=== PATIENT | male | born 1940 | race Caucasian/White ===

== ENCOUNTER 2023-05-14 13:14 | Day surgery (SDC) | payer MEDICARE, OTHER ==
[2023-05-07 10:00] LABS: BASOPHILS % (AUTO) 0.4 % (0-1); EOSINOPHILS # (AUTO) 0.3 X10'3 (0-0.9); EOSINOPHILS % (AUTO) 2.6 % (0-6); HEMATOCRIT 47.4 % (42.0-52.0); HEMOGLOBIN 15.3 g/dl (14.0-17.9); LYMPHOCYTES # (AUTO) 1.4 X10'3 (1.1-4.8); LYMPHOCYTES % (AUTO) 13.1 % (21-51); MEAN CORPUSCULAR HEMOGLOBIN 27.8 PG (27.0-31.0); MEAN CORPUSCULAR HGB CONC 32.3 g/dL (33.0-36.5); MEAN CORPUSCULAR VOLUME 86.2 FL (78-98); MONOCYTES # (AUTO) 0.5 X10'3 (0-0.9); MONOCYTES % (AUTO) 4.9 % (2-12); NEUTROPHILS # (AUTO) 8.5 X10'3 (1.8-7.7); PLATELET COUNT 249 X10'3 (140-440); RED CELL DISTRIBUTION WIDTH 15.3 % (11.5-14.5); WHITE BLOOD COUNT 10.7 X10'3 (4.5-11.0)
[2023-05-07 10:10] LABS: APTT 27 SECONDS (22-32)
[2023-05-07 10:25] LABS: ALBUMIN 3.7 G/DL (3.4-5.0); ANION GAP 6 (8-16); BLOOD UREA NITROGEN 46 MG/DL (7-18); CALCIUM 10.4 MG/DL (8.5-10.1); CHLORIDE 102 MMOL/L (99-107); CHOLESTEROL 137 MG/DL (0-200); CREATININE 2.55 MG/DL (0.60-1.10); GLUCOSE 127 MG/DL (70-104); HDL CHOLESTEROL 46 MG/DL (35-60); LDL CHOLESTEROL 76 MG/DL (50-100); SODIUM 137 MMOL/L (135-145); TOTAL CARBON DIOXIDE 29.5 MMOL/L (24-32); TRIGLYCERIDES 81 MG/DL (20-135); eGFR 24 ML/MIN
[2023-05-14] VITALS (7 sets, daily range): BP systolic 113–141; BP diastolic 45–85
[~2023-05-14] VITALS: Ht 170.2 cm; Wt 96.8 kg
[2023-05-14] MEDS ORDERED: LORazepam 0.5 MG tablet PO PRN (13:35)
[2023-05-14] MEDS ORDERED: diphenhydrAMINE 25mg capsule PO PRN (13:35)
[2023-05-14] MEDS ORDERED: normal saline 1,000 ML IV SCH (13:35)
[2023-05-14] MEDS ORDERED: ASPI81TA52 PO (13:55)
[2023-05-14] MEDS ORDERED: ERGO500041 PO (13:55)
[2023-05-14] MEDS ORDERED: CHLO25TA10 (13:55)
[2023-05-14] MEDS ORDERED: INSU300I (13:55)
[2023-05-14] MEDS ORDERED: RAMI10CA69 (13:55)
[2023-05-14] MEDS ORDERED: AMLO10TA13 (13:55)
[2023-05-14] MEDS ORDERED: FLO0.4C (13:55)
[2023-05-14] MEDS ORDERED: CLOP75TA34 PO (13:55)
[2023-05-14] MEDS ORDERED: PRAV40TA3 (13:55)
[2023-05-14] MEDS ORDERED: POTA-280 (13:55)
[2023-05-14] MEDS ORDERED: LABE100T8 (13:55)
[2023-05-14] MEDS ORDERED: SODIUM BICARB 150mEq/D5W 1L 999 ML IV SCH ×2 (14:30)
[2023-05-14 14:55] LABS: ALBUMIN 3.4 G/DL (3.4-5.0); ANION GAP 9 (8-16); BLOOD UREA NITROGEN 52 MG/DL (7-18); BUN/CREATININE RATIO 21.9 (10.0-20.0); CALCIUM 9.6 MG/DL (8.5-10.1); CHLORIDE 104 MMOL/L (99-107); CREATININE 2.37 MG/DL (0.60-1.10); GLUCOSE 90 MG/DL (70-104); POTASSIUM 4.5 MMOL/L (3.5-5.1); SODIUM 141 MMOL/L (135-145); TOTAL CARBON DIOXIDE 28.4 MMOL/L (24-32); eGFR 26 ML/MIN
[2023-05-14] MEDS ORDERED: nitroGLYCERIN-Tridil 50MG/D5W 250 ML IV ONE (16:12)
[2023-05-14] MEDS ORDERED: midazolam 1 mg/ML 2ml injection ONE (16:13)
[2023-05-14] MEDS ORDERED: LIDOcaine 1% (10mg/ml) 2ml vial ONE (16:13)
[2023-05-14] MEDS ORDERED: iohexol 350MG/ML 100ml bottle IV ONE ×2 (16:13→17:11)
[2023-05-14] MEDS ORDERED: verapamil 2.5 mg/ml inj IV ONE (16:13)
[2023-05-14] MEDS ORDERED: fentaNYL/PF 50MCG/1 ML 2ML syringe ONE (16:13)
[2023-05-14] MEDS ORDERED: heparin 1,000unit/ml 10ml vial 10 ML ONE (16:13)
[2023-05-14] MEDS ORDERED: LIDOcaine 1% 30ml preserv. free vial ONE (16:13)
[2023-05-14] MEDS ORDERED: iohexol 350 MG/ML 50ML vial IV ONE (17:02)
[2023-05-14 17:08] LABS: ISTAT HGB ART 12.6 g/dl (14.0-17.9); ISTAT Hct ART 37 %PCV (42-52); ISTAT O2 SATURATION ARTERIAL 94 % (95-98); ISTAT SOURCE ART
[2023-05-14] MEDS ORDERED: HYDROcodone/acetaminophen 10/325mg tab PO PRN (18:00)
[2023-05-14] MEDS ORDERED: normal saline 1000ml 1,000 ML IV SCH (18:00)
[2023-05-14] MEDS ORDERED: HYDROcodone/acetaminophen 5mg/325mg tablet PO PRN (18:00)
[2023-05-17 07:33] LABS: ISTAT Hct MIX 40 %PCV (42-52); ISTAT O2 SATURATION MIX VENOUS 64 % (60-80); ISTAT SOURCE VEN
== END 2023-05-14 19:30 | disposition home or self-care (01) ==
LOC: SSTAY O 13:14
PROVIDERS: ATTEND Student in an Organized Health Care Education/Training Program
DX: I35.0 Nonrheumatic aortic (valve) stenosis (principal); I25.810 Atherosclerosis of coronary artery bypass graft(s) without angina pectoris; E11.22 Type 2 diabetes mellitus with diabetic chronic kidney disease; I12.9 Hypertensive chronic kidney disease with stage 1 through stage 4 chronic kidney disease, or unspecified chronic kidney disease; N18.4 Chronic kidney disease, stage 4 (severe); E78.5 Hyperlipidemia, unspecified; Z86.73 Personal history of transient ischemic attack (TIA), and cerebral infarction without residual deficits; Z79.01 Long term (current) use of anticoagulants; Z79.82 Long term (current) use of aspirin; Z79.899 Other long term (current) drug therapy
CPT/HCPCS: 36415; 80048; 80061; 82803; 82948; 85014; 85025; 85610; 85730; 93005; 93457; 99152; 99153; J1644; J2250; J3010; J3490; J7030; Q0163; Q9967; A6258; A6402; C1751; C1760; C1769; C1894

== ENCOUNTER 2023-06-09 10:12 | Outpatient (CLI) | payer MEDICARE, OTHER ==
[~2023-06-09 10:12] MED LIST: AMLO10TA13; ASPI81TA52 PO; CHLO25TA10; CLOP75TA34 PO; ERGO500041 PO; FLO0.4C; INSU300I; LABE100T8; POTA-280; PRAV40TA3; RAMI10CA69
[2023-06-09 10:51] LABS: EOSINOPHILS # (AUTO) 0.3 X10'3 (0-0.9)
[2023-06-09 10:53] LABS: BASOPHILS # (AUTO) 0.1 X10'3 (0-0.2); BASOPHILS % (AUTO) 0.7 % (0-1); EOSINOPHILS % (AUTO) 3.8 % (0-6); HEMATOCRIT 43.6 % (42.0-52.0); HEMOGLOBIN 14.6 g/dl (14.0-17.9); LYMPHOCYTES # (AUTO) 1.6 X10'3 (1.1-4.8); LYMPHOCYTES % (AUTO) 18.9 % (21-51); MEAN CORPUSCULAR HEMOGLOBIN 28.4 PG (27.0-31.0); MEAN CORPUSCULAR HGB CONC 33.5 g/dL (33.0-36.5); MEAN CORPUSCULAR VOLUME 84.7 FL (78-98); MEAN PLATELET VOLUME 7.9 FL (7.4-10.4); MONOCYTES # (AUTO) 0.4 X10'3 (0-0.9); MONOCYTES % (AUTO) 5.3 % (2-12); NEUTROPHILS # (AUTO) 5.9 X10'3 (1.8-7.7); NEUTROPHILS % (AUTO) 71.3 % (42-75); PLATELET COUNT 219 X10'3 (140-440); RED BLOOD COUNT 5.15 X10'6 (4.70-6.10); RED CELL DISTRIBUTION WIDTH 15.4 % (11.5-14.5); WHITE BLOOD COUNT 8.3 X10'3 (4.5-11.0)
[2023-06-09 11:02] LABS: APTT 27 SECONDS (22-32)
[2023-06-09 11:03] LABS: ALANINE AMINOTRANSFERASE 22 U/L (12-78); ALBUMIN 3.5 G/DL (3.4-5.0); ALBUMIN/GLOBULIN RATIO 1.1 (1.1-1.5); ALKALINE PHOSPHATASE 99 IU/L (46-116); ANION GAP 7 (8-16); ASPARTATE AMINO TRANSFERASE 20 U/L (10-37); BILIRUBIN,TOTAL 0.5 MG/DL (0.1-1.0); BLOOD UREA NITROGEN 43 MG/DL (7-18); BUN/CREATININE RATIO 17.8 (10.0-20.0); CALCIUM 10.3 MG/DL (8.5-10.1); CHLORIDE 103 MMOL/L (99-107); CREATININE 2.42 MG/DL (0.60-1.10); GLUCOSE 127 MG/DL (70-104); POTASSIUM 4.6 MMOL/L (3.5-5.1); SODIUM 140 MMOL/L (135-145); TOTAL CARBON DIOXIDE 30.5 MMOL/L (24-32); TOTAL PROTEIN 6.8 G/DL (6.4-8.2); eGFR 26 ML/MIN
[2023-06-09] MEDS ORDERED: IODIXANOL 320 MG/ML INFUS..BTL 100ML IV ONE (11:18)
== END 2023-06-09 23:59 | disposition home or self-care (01) ==
LOC: RAD 10:12
PROVIDERS: ATTEND Internal Medicine Cardiovascular Disease
DX: I35.8 Other nonrheumatic aortic valve disorders (principal); I35.0 Nonrheumatic aortic (valve) stenosis; R06.02 Shortness of breath; I65.29 Occlusion and stenosis of unspecified carotid artery; R94.2 Abnormal results of pulmonary function studies
CPT/HCPCS: 71046; 71275; 74174; 80053; 83880; 85025; 85610; 85730; 94010; 94727; 94729; J3490; Q9967